=== PATIENT | male | born 1985 | race Caucasian/White ===

== ENCOUNTER 2017-01-10 07:07 | Emergency (ER) | payer BC ==
--- NOTE | 2017-01-10 07:27 | UC ---
Respiratory Complaint HPI - History of Current Complaint Chief Complaint: UCRespiratory Stated Complaint: SINUSES Time Seen by Provider: 01/10/17 07:20 Hx Obtained From: Patient Onset/Duration: Sudden Onset, Lasting Weeks - 1 1/2, Still Present Timing: Constant Severity Initially: Mild Severity Currently: Moderate Character: Cough: Productive Associated Signs And Symptoms: Positive: Fever, URI, Nasal Congestion, Sinus Discomfort. Negative: Wheezing - Risk Factors Pulmonary Embolism Risk Factors: Negative Cardiac Risk Factors: Negative Pseudomonas Risk Factors: Negative Tuberculosis Risk Factors: Negative - Allergies/Home Medications Allergies/Adverse Reactions: Allergies Allergy/AdvReac Type Severity Reaction Status Date / Time No Known Allergies Allergy Verified 01/10/17 07:18 Home Medications: Home Medications Otc Congestion Med 1 dose PO Q4HR PRN 01/10/17 [History] PMH/Surg Hx/FS Hx/Imm Hx Previously Healthy: Yes Cardiovascular History Of: Denies: Hypertension Respiratory History Of: Denies: Asthma - Surgical History Surgical History: None - Family History Known Family History: Negative: Cardiac Disease, Hypertension, Diabetes - Social History Occupation: Employed Full-time Lives: With Family Alcohol Use: Occasionally Substance Use Type: None Smoking Status (MU): Former Smoker Review of Systems Constitutional: Fever ENT: Sore Throat, Nasal Discharge Neurological: Headache All Other Systems Reviewed And Are Negative: Yes Physical Exam Triage Information Reviewed: Yes Appearance: No Pain Distress, Well-Nourished, Ill-Appearing - Mild Vital Signs: Initial Vital Signs Temp 98.5 F 01/10/17 07:11 Pulse 89 01/10/17 07:11 Resp 18 01/10/17 07:11 BP 107/74 01/10/17 07:11 Pulse Ox 97 01/10/17 07:11 Vital Signs Reviewed: Yes Eyes: Positive: Conjunctiva Clear ENT: Positive: Pharynx normal, Nasal congestion, TMs normal Neck exam: Normal Respiratory: Positive: Lungs clear, Wheezing - expiratory, just with coughing Cardiovascular Exam: Normal Musculoskeletal Exam: Normal Neurological Exam: Normal Psychological Exam: Normal Skin Exam: Normal UC Diagnostic Evaluation - Laboratory O2 Sat by Pulse Oximetry: 97 Respiratory Course/Dx - Differential Dx/Diagnosis Differential Diagnosis/HQI/PQRI: Asthma, Lower Resp Infection, Sinusitis Provider Diagnoses: Acute URI. Acute Sinusitis. Acute Bronchospasm Discharge - Discharge Plan Condition: Stable Disposition: HOME Prescriptions: Amoxicillin (*) 875 mg PO BID #20 tab predniSONE TAB* [Deltasone TAB*] 20 mg PO DAILY #18 tab Patient Education Materials: Upper Respiratory Infection (ED), Sinusitis (ED), Amoxicillin (By mouth), Bronchospasm (ED), Prednisone (By mouth) Additional Instructions: NASAL SPRAYS AND DROPS: Afrin in the PUMP/ MIST bottle. Tilt your head down and look at the floor while doing a strong sniff with the spray. Decongestant nasal sprays and drops often give dramatic relief from congestion. They are often recommended for patients with sinus infection to assist with sinus drainage. Persons with high blood pressure should consult the doctor before using these nasal sprays. Afrin and [place]-Synephrine are common [id number]-inj-ylobori preparations. They should not be used for more than five days, as "rebound" congestion can occur - - the congestion flares as the drug wears off. A way of dealing with this rebound congestion problem is to medicate only one nostril each time, allowing the other nostril to recover from the medicine' s effects. When you no longer need the drug during the day, spray only one nostril each night. This helps you sleep well without severe rebound congestion. Call the doctor if you develop severe headache, palpitations, or chest pain.
[2017-01-10 07:29] VITALS: BP 107/74
== END 2017-01-10 07:43 | disposition home or self-care (01) ==
LOC: UCCORT 07:07
DX: J06.9 Acute upper respiratory infection, unspecified (principal); J01.90 Acute sinusitis, unspecified; B96.89 Other specified bacterial agents as the cause of diseases classified elsewhere; J98.01 Acute bronchospasm; R50.9 Fever, unspecified; Z87.891 Personal history of nicotine dependence
CPT/HCPCS: 99202; G0463

== ENCOUNTER 2018-07-04 12:08 | Emergency (ER) | payer BC ==
[2018-07-04 12:39] VITALS: BP 123/71
--- NOTE | 2018-07-04 13:09 | UC ---
HPI Febrile Illness - HPI Summary HPI Summary: He started to feel ill 4 days ago. He then had a fever for two days and today he has taken no antipyretics and has no fever. Through this he has had a "mild" headache that is made worse with certain movements. NO sore throat, vomiting, rash. There were some tick bites in the Spring that he removed quickly. - History of Current Complaint Chief Complaint: UCGeneralIllness Time Seen by Provider: 07/04/18 12:49 Hx Obtained From: Patient Onset/Duration: Started Days Ago Timing: Constant, Lasting Days Initial Severity: Mild Current Severity: Moderate Pain Intensity: 6 Aggravating Factors: Other: - certain movements. Alleviating Factors: OTC Medicine Associated Signs and Symptoms: Negative - Allergy/Home Medications Allergies/Adverse Reactions: Allergies Allergy/AdvReac Type Severity Reaction Status Date / Time No Known Allergies Allergy Verified 07/04/18 12:34 Home Medications: Home Medications NK [No Home Medications Reported] 07/04/18 [History Confirmed 07/04/18] PMH/Surg Hx/FS Hx/Imm Hx Previously Healthy: Yes - Surgical History Surgical History: None - Family History Known Family History: Negative: Cardiac Disease, Hypertension, Diabetes - Social History Occupation: Employed Full-time Lives: With Family Alcohol Use: Occasionally Alcohol Amount: WEEKENDS Substance Use Type: None Smoking Status (MU): Light Every Day Tobacco Smoker Type: Cigarettes Amount Used/How Often: 1 pack every 2 weeks Length of Time of Smoking/Using Tobacco: 2 years - Immunization History Most Recent Tetanus Shot: UTD Review of Systems Constitutional: Fever Neurological: Headache All Other Systems Reviewed And Are Negative: Yes Physical Exam Triage Information Reviewed: Yes Appearance: Well-Appearing, No Pain Distress, Well-Nourished Vital Signs: Initial Vital Signs Temp 98.4 F 07/04/18 12:34 Pulse 87 07/04/18 12:34 Resp 16 07/04/18 12:34 BP 123/71 07/04/18 12:34 Pulse Ox 98 07/04/18 12:34 Vital Signs Reviewed: Yes Eyes: Positive: Conjunctiva Clear. Negative: Conjunctiva Inflamed ENT: Positive: Normal ENT inspection, Hearing grossly normal, Pharynx normal, TMs normal, Uvula midline. Negative: Pharyngeal erythema, Nasal congestion, Nasal drainage, TM bulging, TM dull, TM red, Tonsillar swelling, Tonsillar exudate, Trismus Neck: Positive: Supple, Nontender, No Lymphadenopathy. Negative: Nuchal Rigidity Respiratory: Positive: Lungs clear, Normal breath sounds, No respiratory distress, No accessory muscle use. Negative: Respiratory distress, Decreased breath sounds, Accessory muscle use, Crackles, Rhonchi, Stridor, Wheezing Cardiovascular: Positive: No Murmur, Pulses Normal, Brisk Capillary Refill Abdomen Description: Positive: No Organomegaly, Soft. Negative: Distended, Guarding Musculoskeletal: Positive: Strength Intact, ROM Intact, No Edema Neurological: Positive: Alert, Muscle Tone Normal. Negative: Fatigued Psychological: Positive: Age Appropriate Behavior Skin: Negative: rashes Course/Dx - Course Course Of Treatment: Fever and reported mild headache an neck completely soft and neck Full ROM here. NO fever today. We discussed in detail risk of lymes disease with repeat testing in 3-6 weeks to be sure. He will get serology today. NO known ticks in the last several weeks. Neuro exam normal and no defecits or bells palsey. Encephalitis arbovirus still a possibility but this would be a mild case if any. No signs of bacterial meningitis given "mild headahce," improvement of fever, and abscence of nuchal rigidity. - Diagnoses Clinic Provider Diagnoses: fever. headache Discharge - Sign-Out/Discharge Documenting (check all that apply): Patient Departure - Discharge Plan Condition: Good Disposition: HOME Patient Education Materials: Fever in Adults (ED) Referrals: No Primary Care Phys,NOPCP [Primary Care Provider] - Additional Instructions: repeat lymes panel in3-6 weeks. Go to ED for any worsening symptoms. - Billing Disposition and Condition Condition: GOOD Disposition: Home
[2018-07-05 11:19] LABS: Hematocrit 45 % (42-52); Hemoglobin 14.8 g/dl (14.0-18.0); Mean Corpuscular HGB Conc 33 g/dl (31-36); Mean Corpuscular Hemoglobin 28 pg (27-31); Mean Corpuscular Volume 83 fL (80-94); Mean Platelet Volume 8.4 um3 (7.4-10.4); Platelet Count 203 10^3/ul (150-450); Red Blood Count 5.39 10^6/ul (4.00-5.40); Red Cell Distribution Width 13 % (10.5-15); White Blood Count 4.6 10^3/ul (3.5-10.8)
[2018-07-05 11:39] LABS: EGFR Non-African American 79.6 (>60)
[2018-07-05 12:14] LABS: ABS Basophils 0 10^3/ul (0-0.2); ABS Neutrophils 1.8 10^3/ul (1.5-7.7)
[2018-07-05 12:15] LABS: Monocytes % 23 % (0-7)
== END 2018-07-04 13:15 | disposition home or self-care (01) ==
LOC: UCCORT 12:08
DX: R50.9 Fever, unspecified (principal); R51 Headache; F17.210 Nicotine dependence, cigarettes, uncomplicated
CPT/HCPCS: 36415; 80053; 85025; 85060; 86617; 99211; G0463